=== PATIENT | male | born 1955 | race Hispanic/Latino ===

== ENCOUNTER 2016-05-16 11:57 | Emergency (ER) | payer MEDICAID, SELFPAY ==
[2016-05-16 12:03] VITALS: BP 145/82; PULSE 58; RESP 19; TEMP 97.8; O2SAT 99
--- NOTE | 2016-05-16 14:01 | ED PDOC ---
HPI: General Adult Time Seen by Provider: 05/16/16 12:16 Chief Complaint (Nursing): Hip Pain Chief Complaint (Provider): Hip Pain History Per: Patient History/Exam Limitations: no limitations Onset/Duration Of Symptoms: Days Current Symptoms Are (Timing): Still Present Severity: Moderate Recently: Treated By A Physician Additional Complaint(s): Patient is a 60 year old male who presents to ED for left buttock, hip and leg pain for 3 weeks. Patient denies urinary changes, bowel changes, nausea, vomiting or testicular pain. Patient notes he was initially evaluated at [facility] with negative xrays and discharged on muscle relaxers but denies any relief. Evaluated by a medical doctor 3 days ago, prescribed Percocet but upon following up with PMD yesterday he was instructed that no new prescriptions can be written for 10 days. Patient is requesting a second opinion Past Medical History Reviewed: Historical Data, Nursing Documentation, Vital Signs Vital Signs: Last Vital Signs Temp 97.8 F 05/16/16 12:02 Pulse 58 L 05/16/16 12:02 Resp 19 05/16/16 12:02 BP 145/82 05/16/16 12:02 Pulse Ox 99 05/16/16 16:20 - Medical History PMH: Arthritis, HTN, Hypercholesterolemia Denies: Chronic Kidney Disease - Surgical History Surgical History: Tonsillectomy - Family History Family History: States: No Known Family Hx - Living Arrangements Living Arrangements: With Family - Home Medications Home Medications: Ambulatory Orders Medication Instructions Recorded Cyclobenzaprine [Cyclobenzaprine 10 mg PO BID PRN #8 tab 05/16/16 HCl] - Allergies Allergies/Adverse Reactions: Allergies Allergy/AdvReac Type Severity Reaction Status Date / Time No Known Allergies Allergy Verified 05/16/16 12:11 Review of Systems ROS Statement: Except As Marked, All Systems Reviewed And Found Negative Constitutional: Negative for: Fever, Chills Cardiovascular: Negative for: Chest Pain Respiratory: Negative for: Shortness of Breath Gastrointestinal: Negative for: Nausea, Vomiting, Abdominal Pain Musculoskeletal: Positive for: Leg Pain, Other (left hip and left buttock ). Negative for: Back Pain Neurological: Negative for: Weakness, Numbness Physical Exam - Reviewed Nursing Documentation Reviewed: Yes Vital Signs Reviewed: Yes - Physical Exam Appears: Positive for: Non-toxic, No Acute Distress Skin: Positive for: Normal Color, Warm Eye Exam: Positive for: Normal appearance Neck: Positive for: Normal, Painless ROM Cardiovascular/Chest: Positive for: Regular Rate, Rhythm. Negative for: Murmur Back: Positive for: Normal Inspection. Negative for: Vertebral Tenderness Extremity: Positive for: Normal ROM, Other (Left hip and leg (-) tenderness (-) deformity ) Neurologic/Psych: Positive for: Alert, Oriented - ECG O2 Sat by Pulse Oximetry: 99 (RA) Pulse Ox Interpretation: Normal Medical Decision Making Medical Decision Making: Time: 1345 Initial impression: Atraumatic left hip and leg pain Initial plan: -- Toradol IM -- Hip Xray Time: 1610 LS xray: Negative Discussed results with patient, requesting Percocet. Advised that he was just given 30 tablets 5 days ago and another prescription can not be given at this time. Patient than requests Flexeril and copy of reports. All copies given, educated patient on the importance of following up with an orthopedic doctor. Scribe Attestation: Documented by Jackelyn Mclaughlin acting as a scribe for Brittney Steve MD MD Scribe Attestation: All medical record entries made by the Scribe were at my direction and personally dictated by me. I have reviewed the chart and agree that the record accurately reflects my personal performance of the history, physical exam, medical decision making, and the department course for this patient. I have also personally directed, reviewed, and agree with the discharge instructions and disposition. Disposition - Clinical Impression Clinical Impression: Hip pain - Disposition Referrals: Chandler De La Torre MD [Staff Provider] - Condition: GOOD Additional Instructions: follow up with orthopedic tech as instructed for MRI And further management of back pain. return to the ED with any worsening or concerning symptoms Prescriptions: Cyclobenzaprine [Cyclobenzaprine HCl] 10 mg PO BID PRN #8 tab PRN Reason: Pain, Moderate (4-7) Instructions: Hip Pain (ED) Print Language: [place]
--- NOTE | 2016-05-16 14:31 | RAD ---
PROCEDURE: Left Hip X-ray Radiographs. HISTORY: hip pain left COMPARISON: None. FINDINGS: BONES: The pelvic ring is intact. There is no acute fracture or bone destruction. Bone alignment and mineralization are normal. JOINTS: The hip joint spaces are preserved. There is mild degenerative spurring in the acetabulum and femoral head. SOFT TISSUES: Normal. OTHER FINDINGS: Both sacroiliac joints are normal. IMPRESSION: No acute fracture, dislocation or bone destruction. Mild degenerative osteoarthrosis in the hip joints.
== END 2016-05-16 16:36 | disposition home or self-care (01) ==
LOC: H.ER 11:57
DX: M16.0 Bilateral primary osteoarthritis of hip (principal)

== ENCOUNTER 2017-03-25 09:41 | Emergency (ER) | payer MEDICAID, OTHER ==
[2017-03-25 09:46] VITALS: BMI 29.5
--- NOTE | 2017-03-25 11:42 | ED PDOC ---
HPI: General Adult Chief Complaint (Provider): cough, malaise History Per: Patient History/Exam Limitations: no limitations Onset/Duration Of Symptoms: Days (2) Current Symptoms Are (Timing): Still Present Time Seen by Provider: 03/25/17 10:04 Chief Complaint (Nursing): Cough, Cold, Congestion Additional Complaint(s): 61yo male c/o malaise, cough, body aches ongoing for 2-3 days. Also notes chronic b/l foot pains. Used to take anti-inflammatories for pain but been holding off due to concern for kidneys. Has labwork with him showing [employer] 1.3 from 02/16. (Didier Yip III) Past Medical History Reviewed: Historical Data, Nursing Documentation, Vital Signs - Medical History PMH: Arthritis, HTN, Hypercholesterolemia Denies: Chronic Kidney Disease - Surgical History Surgical History: Tonsillectomy - Family History Family History: States: Unknown Family Hx - Social History Current smoker - smoking cessation education provided: No Vital Signs: Last Vital Signs Temp 99 F 03/25/17 12:28 Pulse 87 03/25/17 12:28 Resp 18 03/25/17 12:28 BP 129/86 03/25/17 12:28 Pulse Ox 98 03/25/17 12:28 - Home Medications Home Medications: Ambulatory Orders Medication Instructions Recorded Cyclobenzaprine [Cyclobenzaprine 10 mg PO BID PRN #8 tab 05/16/16 HCl] Albuterol HFA [Ventolin HFA 90 1 - 2 puff IH Q4 PRN #1 inhaler 03/25/17 mcg/actuation (8 g)] Azithromycin [Zithromax] 250 mg PO DAILY #6 tab 03/25/17 traMADol [Ultram] 50 mg PO TID PRN #12 tab 03/25/17 - Allergies Allergies/Adverse Reactions: Allergies Allergy/AdvReac Type Severity Reaction Status Date / Time anti-inflammatory AdvReac VOMITING Uncoded 03/25/17 10:04 Review of Systems ROS Statement: Except As Marked, All Systems Reviewed And Found Negative Constitutional: Negative for: Fever, Chills ENT: Positive for: Throat Pain Cardiovascular: Negative for: Chest Pain, Palpitations Respiratory: Positive for: Cough, Shortness of Breath Gastrointestinal: Negative for: Abdominal Pain Genitourinary Male: Negative for: Dysuria Musculoskeletal: Positive for: Foot Pain, Other (body aches). Negative for: Neck Pain, Leg Pain Skin: Negative for: Rash, Lesions, Jaundice Neurological: Negative for: Weakness, Headache, Dizziness Psych: Negative for: Depression Physical Exam - Reviewed Nursing Documentation Reviewed: Yes Vital Signs Reviewed: Yes - Physical Exam Appears: Positive for: Well, Non-toxic, No Acute Distress Head Exam: Positive for: ATRAUMATIC, NORMAL INSPECTION, NORMOCEPHALIC Skin: Positive for: Normal Color, Warm, DRY Eye Exam: Positive for: EOMI, Normal appearance, PERRL ENT: Positive for: Pharyngeal Erythema Neck: Positive for: Normal, Painless ROM Cardiovascular/Chest: Positive for: Regular Rate, Rhythm Respiratory: Positive for: Rhonchi. Negative for: Stridor, Wheezing, Respiratory Distress Gastrointestinal/Abdominal: Positive for: Bowel Sounds, Soft. Negative for: Tenderness Back: Positive for: Normal Inspection Extremity: Positive for: Normal ROM. Negative for: Tenderness Neurologic/Psych: Positive for: Alert, Oriented. Negative for: Motor/Sensory Deficits - ECG O2 Sat by Pulse Oximetry: 96 Medical Decision Making Medical Decision Making: workup initiated for flu like symptoms Low dose toradol IM ordered, refused tylenol states "it does nothing for me" Flu swab neg CXR no focal infiltrate but mild incr markings on my read Initiate Azithro and tramadol (hold other NSAIDS on his request) followup PMD for further testing. (Didier Yip III) 17:00 CXR : Limited inspiratory volume. No acute infiltrate pleural effusion or pneumothorax identified. Mild prominence of the right lateral pleural space is appreciated versus subpleural fat. Follow-up CT of the Chest is advised to exclude right pleural malignancy. Patient called and notified of the chest x-ray results. Patient advised to follow-up with his PMD regarding results and to obtain an outpatient CT scan of his chest for further evaluation of chest x-ray findings. Patient states that he has a pmd he can follow up with. Patient states he fully agrees with and understands instructions. I have given the patient opportunity to ask any additional questions. (Jake KRUSE,Anitha Mcmillan) Disposition - Patient ED Disposition Is Patient to be Admitted: No Counseled Patient/Family Regarding: Studies Performed, Diagnosis, Need For Followup, Rx Given - Disposition Disposition: Routine/Home Disposition Time: 11:44 - Clinical Impression Clinical Impression: Flu-like symptoms - Disposition Referrals: Podiatry Clinic [Outside] [facility] [Outside] Condition: STABLE Additional Instructions: See podiatry clinic for further testing of chronic foot pain. Take medications as directed. Prescriptions: Albuterol HFA [Ventolin HFA 90 mcg/actuation (8 g)] 1 - 2 puff IH Q4 PRN #1 inhaler PRN Reason: Shortness Of Breath Azithromycin [Zithromax] 250 mg PO DAILY #6 tab traMADol [Ultram] 50 mg PO TID PRN #12 tab PRN Reason: Pain, Moderate (4-7) Instructions: Acute Bronchitis (ED), Arthralgia (ED) Forms: [facility] ([place])
--- NOTE | 2017-03-25 12:01 | RAD ---
HISTORY: cough COMPARISON: No prior. TECHNIQUE: Chest PA and lateral FINDINGS: LUNGS: No acute infiltrate identified bilaterally. Diminished airspace disease is appreciated bilaterally. Limited right pleural thickening or subpleural fat is appreciated. PLEURA: No significant pleural effusion identified. No pneumothorax apparent. CARDIOVASCULAR: Normal. OSSEOUS STRUCTURES: No significant abnormalities. VISUALIZED UPPER ABDOMEN: Normal. OTHER FINDINGS: None. IMPRESSION: Limited inspiratory volume. No acute infiltrate pleural effusion or pneumothorax identified. Mild prominence of the right lateral pleural space is appreciated versus subpleural fat. Follow-up CT of the Chest is advised to exclude right pleural malignancy. PA review is been assigned to this case.
[2017-03-25 12:29] VITALS: BP 129/86; PULSE 87; RESP 18; TEMP 99; O2SAT 98
== END 2017-03-25 12:29 | disposition home or self-care (01) ==
LOC: H.ER 09:41
DX: J40 Bronchitis, not specified as acute or chronic (principal); M26.629 Arthralgia of temporomandibular joint, unspecified side; E78.00 Pure hypercholesterolemia, unspecified; I10 Essential (primary) hypertension
CPT/HCPCS: 71046; 87804; 96372; 99283; J1885

== ENCOUNTER 2017-04-12 11:53 | Emergency (ER) | payer MEDICAID, OTHER ==
[2017-04-12 11:53] VITALS: BMI 29.5
[2017-04-12 12:37] VITALS: BP 143/83; PULSE 62; RESP 20; TEMP 98.5; O2SAT 98
--- NOTE | 2017-04-12 13:02 | ED PDOC ---
Lower Extremity Pain/Injury Time Seen by Provider: 04/12/17 12:30 Chief Complaint (Nursing): Lower Extremity Problem/Injury Chief Complaint (Provider): Right Knee Pain History Per: Patient History/Exam Limitations: no limitations Onset/Duration Of Symptoms: Hrs (this morning) Current Symptoms Are (Timing): Still Present Additional Complaint(s): Harsha is a 61 y/o male with a history of knee pain who presents to the ED complaining of swelling and knee pain after twisting it. Patient has had swelling before and had it drained 20 years ago. He denies any activity or falls. PMD: None Provided Past Medical History Reviewed: Historical Data, Nursing Documentation, Vital Signs Vital Signs: Last Vital Signs Temp 98.5 F 04/12/17 12:30 Pulse 62 04/12/17 12:30 Resp 20 04/12/17 12:30 BP 143/83 04/12/17 12:30 Pulse Ox 98 04/12/17 12:30 - Medical History PMH: Arthritis, HTN, Hypercholesterolemia Denies: Chronic Kidney Disease - Surgical History Surgical History: Tonsillectomy - Family History Family History: States: Unknown Family Hx - Home Medications Home Medications: Ambulatory Orders Medication Instructions Recorded Cyclobenzaprine [Cyclobenzaprine 10 mg PO BID PRN #8 tab 05/16/16 HCl] Albuterol HFA [Ventolin HFA 90 1 - 2 puff IH Q4 PRN #1 inhaler 03/25/17 mcg/actuation (8 g)] Azithromycin [Zithromax] 250 mg PO DAILY #6 tab 03/25/17 traMADol [Ultram] 50 mg PO TID PRN #12 tab 03/25/17 Acetaminophen [Acetaminophen Extra 2 tab PO Q6 PRN #24 tablet 04/12/17 Strength] traMADol [Ultram] 50 mg PO Q12 PRN #8 tab 04/12/17 - Allergies Allergies/Adverse Reactions: Allergies Allergy/AdvReac Type Severity Reaction Status Date / Time anti-inflammatory AdvReac VOMITING Uncoded 03/25/17 10:04 Review of Systems ROS Statement: Except As Marked, All Systems Reviewed And Found Negative Musculoskeletal: Positive for: Leg Pain (right knee) Physical Exam - Reviewed Nursing Documentation Reviewed: Yes Vital Signs Reviewed: Yes - Physical Exam Appears: Positive for: Well, Non-toxic, No Acute Distress Cardiovascular/Chest: Positive for: Regular Rate, Rhythm. Negative for: Murmur Respiratory: Positive for: Normal Breath Sounds. Negative for: Respiratory Distress Extremity: Positive for: Normal ROM (flexes and extends w/o problem), Swelling ( pre-patellar, about 2 cm), Other (no erythema or effusion) Neurologic/Psych: Positive for: Alert, Oriented - ECG O2 Sat by Pulse Oximetry: 98 (RA) Pulse Ox Interpretation: Normal - Progress ED Course And Treament: KNEE XRY:IMPRESSION: No evidence of acute displaced fracture nor dislocation. No significant osteoarthritis. Findings suggest Jose Alfredo-Stieda. Vascular calcifications. Medical Decision Making Medical Decision Making: Time: 12:43 Initial Impression: Right Knee Pain Initial Plan: --XR Knee 3 Views Scribe Attestation: Documented by [employer] Stewart, acting as a scribe for Sanya Juan PA-C Provider Scribe Attestation: All medical record entries made by the Scribe were at my direction and personally dictated by me. I have reviewed the chart and agree that the record accurately reflects my personal performance of the history, physical exam, medical decision making, and the department course for this patient. I have also personally directed, reviewed, and agree with the discharge instructions and disposition. Disposition - Clinical Impression Clinical Impression: Prepatellar bursitis, Bone spur - Patient ED Disposition Is Patient to be Admitted: No - Disposition Referrals: [facility] [Outside] Stewart Eaton MD [Medical Doctor] - Disposition: Routine/Home Disposition Time: 13:54 Condition: FAIR Prescriptions: Acetaminophen [Acetaminophen Extra Strength] 2 tab PO Q6 PRN #24 tablet PRN Reason: Pain, Moderate (4-7) traMADol [Ultram] 50 mg PO Q12 PRN #8 tab PRN Reason: Pain, Severe (8-10) Instructions: Knee Pain (ED) Print Language: [place] CITIZ[place]
--- NOTE | 2017-04-12 13:36 | RAD ---
PROCEDURE: Right Knee Radiographs. HISTORY: Knee swelling. COMPARISON: None. FINDINGS: BONES: No evidence of acute displaced fracture nor dislocation. The osseous structures intact. Small elliptical shaped calcific density within the medial soft tissues adjacent to the medial femoral condyles could represent Jose Alfredo-Stieda JOINTS: Joint spaces relatively preserved. No significant osteoarthritis. JOINT EFFUSION: None. OTHER FINDINGS: Mild vascular calcifications noted. IMPRESSION: No evidence of acute displaced fracture nor dislocation. No significant osteoarthritis. Findings suggest Jose Alfredo-Stieda. Vascular calcifications.
== END 2017-04-12 14:27 | disposition home or self-care (01) ==
LOC: H.ER 11:53
DX: M70.41 Prepatellar bursitis, right knee (principal); M77.31 Calcaneal spur, right foot; E78.00 Pure hypercholesterolemia, unspecified; I10 Essential (primary) hypertension